=== PATIENT | male | born 1940 | race Caucasian/White ===

== ENCOUNTER 2016-12-03 11:40 | Emergency (ER) | payer OTHER ==
[~2016-12-03] VITALS: Ht 172.7 cm; Wt 103.0 kg
[2016-12-03] MEDS ORDERED: INDOMETHACIN50 M1 PO (14:08)
--- NOTE | 2016-12-03 14:08 | ED ANKLE/FOOT INJURY COMPLAINT ---
History of Present Illness General Chief Complaint: Foot or Ankle Injury Stated Complaint: ?RIGHT FOOT, ?GOUT Source: patient Exam Limitations: no limitations Vital Signs & Intake/Output Vital Signs & Intake/Output Vital Signs Date Time Temp Pulse Resp B/P Pulse O2 O2 Flow FiO2 Ox Delivery Rate 12/03 1219 99.7 60 20 159/87 97 Room Air Allergies Coded Allergies: No Known Allergies (12/03/16) Reconcile Medications Indomethacin 50 MG CAPSULE 1 CAP PO TID GOUT with food Triage Note: RECEIVED 76 YO MALE WITH HX OF GOUT C/O SEVERE RIGHT FOOT AND RIGHT GREAT TOE AREA PAIN, WORSE WITH WEIGHT BEARING, STARTED YESTERDAY AM. NO TRAUMA OR INJURY NOTED. Triage Nurses Notes Reviewed? yes HPI: This patient is a 76-year-old male who presented to the emergency department today for evaluation of right great toe pain. The patient reported that the symptoms began yesterday and have been worsening. The pain has been constant since onset. When he is not walking, the pain as a 3 out of 10 and throbbing. When he is walking, the pain gets up to a 10 out of 10. The patient reported that he has never had a formal diagnosis of gout, but reported that this is happened in the past with similar symptoms. He denied any trauma to the area. The patient denied any ankle pain, knee pain, fevers, chills, abdominal pain, or shortness of breath. (SHRUTHI ABEBE PA-C) Past History Travel History Traveled to [place] past 21 day No Medical History Any Pertinent Medical History? see below for history Neurological: NONE EENT: NONE Cardiovascular: hypertension, hyperlipidemia, myocardial infarction Respiratory: NONE Gastrointestinal: NONE Hepatic: NONE Renal: nephrolithiasis Musculoskeletal: NONE Psychiatric: NONE Endocrine: diabetes, hypothyroidism Surgical History Surgical History: non-contributory Psychosocial History What is your primary language Fijian Tobacco Use: Quit >30 days ago Family History Hx Contributory? No (SHRUTHI ABEBE PA-C) Review of Systems Review of Systems Constitutional: Reports: no symptoms. EENTM: Reports: no symptoms. Respiratory: Reports: no symptoms. Cardiovascular: Reports: no symptoms. GI: Reports: no symptoms. Musculoskeletal: Reports: see HPI. Skin: Reports: no symptoms. Neurological/Psychological: Reports: no symptoms. All Other Systems: Reviewed and Negative (SHRUTHI ABEBE PA-C) Physical Exam Physical Exam Leg/Knee/Thigh Left: normal range of motion, normal inspection Comments: Well-developed well-nourished person in no acute distress HEENT: Head normocephalic, moist mucous membranes Neck: Supple, no lymphadenopathy Back: Antalgic gait Respiratory: No respiratory distress. Speaking in full sentences Right foot/ankle: Edema and surrounding erythema to the great toe with tenderness to palpation to the dorsum of the great toe. No bony or muscular deformities noted. No ecchymosis or skin breakdown. No signs of trauma. Full range of motion at the ankle. Dorsalis pedis and posterior tibialis pulses 2+ and strong. Capillary refill less than 2 seconds Neuro: Alert and oriented x3 Psych: Mood affect normal, normal memory normal judgment. Skin: Warm and dry, no rash on exposed skin (SHRUTHI ABEBE PA-C) Progress Differential Diagnosis: DVT, arterial insufficiency, cellulitis, septic arthritis, gout, fracture, dislocation, sprain, contusion, compartmental syndrome Plan of Care: This patient is a 76-year-old male who presented to the emergency department today for evaluation of great toe. This patient had no trauma to the area. He reported similar symptoms in the past. Likely acute gouty attack. This patient is afebrile and nontoxic-appearing. He will be discharged with outpatient management for acute gout and was counseled on the importance of following up with his primary care physician for further evaluation and possibly be started on a preventative medication. Also counseled the patient on the importance of specific dietary restrictions to prevent further Attacks. (SHRUTHI ABEBE PA-C) Departure Departure Disposition: HOME OR SELF CARE Condition: Stable Clinical Impression Primary Impression: Gout Qualifiers: Gout site: toe Gout etiology: unspecified cause Laterality: right Chronicity: acute Qualified Code: M10.9 - Gout, unspecified Referrals: SHAWNEE CORTES,DASH Lazar (PCP/Family) Additional Instructions: Please take medication as prescribed. Be sure to attend your previously scheduled appointment with your primary care physician for follow-up. Please avoid foods that may cause an increased risk to develop a future gout attack such as red meat, seafood, alcoholic beverages, and foods with high fructose corn syrup. Return for any worsening symptoms or concerns. Departure Forms: Customer Survey General Discharge Information Prescriptions: Current Visit Scripts Indomethacin 1 CAP PO TID #21 CAP with food (SHRUTHI ABEBE PA-C) PA/MOTOR ANALYST Co-Sign Statement Statement: ED Attending supervision documentation- [X] I saw and evaluated the patient. I have also reviewed all the pertinent lab results and diagnostic results. I agree with the findings and the plan of care as documented in the PA's/MOTOR ANALYST's documentation. [] I have reviewed the ED Record and agree with the PA's/MOTOR ANALYST's documentation. [] Additions or exceptions (if any) to the PAs/MOTOR ANALYST's note and plan are summarized below: [] (ASHWIN CORTES,INEG Lomeli)
[2016-12-03 14:14] VITALS: BP 140/80
== END 2016-12-03 14:14 ==
LOC: ERH 11:40
DX: M10.9 Gout, unspecified (principal)